=== PATIENT | female | born 1955 | race Caucasian/White ===

== ENCOUNTER → 2016-10-13 | Outpatient (CLI) | payer OTHER ==
--- NOTE | 2016-10-13 16:58 | DI ---
XR CXR 2VW PA/LAT,10/13/2016 10:32 AM: Clinical History: Dyspnea Previous Exam: October 12, 2010 Findings: PA and lateral views of the chest are obtained, and demonstrate flattening of the hemidiaphragms. The re is also some airspace disease predominantly within the left lung base. The cardiac silhouette is unremarkable. Multiple suture anchors is seen involving the anterior margin of the glenoid. Impression: Airspace disease within the left lung base, cannot rule out the possibility of an early pneumonia. Th is could also represent subsegmental atelectasis.
== END ==
LOC: MOB RAD 10:35
PROVIDERS: ATTEND Physician Assistant Medical
DX: R06.00 Dyspnea, unspecified (principal); J18.1 Lobar pneumonia, unspecified organism
CPT/HCPCS: 71020

== ENCOUNTER 2017-10-11 08:00 | Inpatient (IN) ==
[2017-10-25] MEDS ORDERED: Tranexamic Acid 1,000 MG in Sodium Chloride 0.9% 100 ML IV SCH (06:00)
[2017-10-25] MEDS ORDERED: ceFAZolin Inj 2gm (Premix) 2 GM/50 ML BAG IV ONE ×2 (06:00→06:09)
[2017-10-25] MEDS ORDERED: Ketorolac Inj 30 MG, Morphine Inj 5 MG, BUPivacaine Inj 0.25% PF 150 MG SPLASH ONE ×3 (06:00)
[2017-10-25] MEDS ORDERED: LIDOCAINE W/ SODIUM BICARB 0.5 ML SYR SUBD ONE (06:00)
[2017-10-25] MEDS ORDERED: LIDOCAINE W/ SODIUM BICARB 0.5 ML SYR ONE (06:08)
[2017-10-25] MEDS ORDERED: Lactated Ringers 1,000 ML PRIMARY IV ONE ×2 (06:08→12:07)
[2017-10-25] MEDS ORDERED: TRANEXAMIC ACID 1,000 MG / 10 ML VIAL ONE (06:09)
[2017-10-25] MEDS ORDERED: Sodium Chloride 0.9% 0 ML ONE (08:11)
[2017-10-25] MEDS ORDERED: Sodium Chloride 0.9% 500 ML ONE (08:11)
[2017-10-25] MEDS: Lactated Ringers 1,000 ML PRIMARY IV SCH (08:30)
[2017-10-25] MEDS ORDERED: LIDOCAINE 2%/ EPI 1:200,000 - 20 ML VIAL ONE (08:41)
[2017-10-25] MEDS ORDERED: fentaNYL Inj 250 MCG/5 ML VIAL ONE (08:41)
[2017-10-25] MEDS ORDERED: MIDAZOLAM 5 MG/1 ML ONE (08:41)
[2017-10-25] MEDS ORDERED: BUPIVACAINE 0.5% W/EPI MPF -30 ML VIAL IV ONE (08:41)
[2017-10-25] MEDS ORDERED: PROPOFOL 10 MG/1 ML (200 MG/20 ML) VIAL IV ONE ×2 (09:26→09:50)
[2017-10-25] MEDS ORDERED: ePHEDrine Inj 50 MG/ML AMP ONE (10:01)
[2017-10-25] MEDS ORDERED: ROCURONIUM 10 MG/1 ML - 5 ML VIAL IVP ONE (10:10)
[2017-10-25] MEDS ORDERED: KETAMINE 100 MG/1 ML - 5 ML ONE (10:19)
[2017-10-25] MEDS ORDERED: LIDOCAINE HCL 2 % 10 ML JELLY URO-JECT TOPICAL PRN (10:20)
[2017-10-25] MEDS ORDERED: HYDROmorphone 2 MG/1 ML ONE (10:27)
[2017-10-25] MEDS ORDERED: ONDANSETRON 4 MG/2 ML VIAL ONE ×2 (12:03→14:00)
[2017-10-25] MEDS ORDERED: HYDROmorphone 2 MG/1 ML IVP PRN (12:27)
[2017-10-25] MEDS ORDERED: NORMAL SALINE 10 ML SYRINGE FLUSH IVP PRN (12:27)
[2017-10-25] MEDS ORDERED: LIDOCAINE W/ SODIUM BICARB 0.5 ML SYR SUBD PRN (12:27)
[2017-10-25] MEDS ORDERED: fentaNYL Inj 100 MCG/2 ML VIAL IVP PRN (12:27)
[2017-10-25] MEDS ORDERED: PROMETHAZINE 25 MG/1 ML VIAL IM PRN (12:27)
--- NOTE | 2017-10-25 12:27 | CRNA.PROCE ---
Nerve Block Documentation - - Safety Measures: Time Out Taken, Site Verified - - Type of Nerve Block Used: Left Adductor Canal Nerve Block Position for Nerve Block: Supine Moniters Used During Block: SPO2, NIBP Oxygen Supplemented: Yes Sedation Used - Enter Amount in Comment Field [ANES.SEDAT]: Midazolam (mg): Yes (4mg), Fentanyl (mcg): Yes (50mcg) Skin Prep Used: ChloroPrep Technique: Ultrasound Nerve Block Needle Used: EchoBright 100 mm Local Anesthetic - Enter Amt in Comment Field [ANES.LOCNB]: 0.5 % Bupivicaine with Epinephrine 1:200,000 (mL): Yes (15ml), 2 % Xylocaine with Epinephrine 1: 200,000 (mL): Yes (15ml) - - PreOp Block : Time In: 09:10 PreOp Block : Time Out: 09:25 Anesthesia Time - Other Weight: 81.647 kg Height: 5 ft 3 in Body Mass Index (BMI): 31.8
[2017-10-25] MEDS ORDERED: Lactated Ringers 1,000 ML PRIMARY IV SCH (12:30)
--- NOTE | 2017-10-25 13:43 | ORTHO.OP ---
Surgery Date: 10/25/17 Preoperative Diagnosis: Osteoarthritis left knee Postoperative Diagnosis: Same Procedure: Left total knee arthroplasty using the Joe persona knee system with ultra congruent tray Surgeon: Yaakov Hanson MD Stamping Press Operator: Chriss Alvarenga MD Anesthesia Provider: Jason Davey CRNA Anesthesia Type: General, Regional Estimated Blood Loss (mL): 100 Fluids: 1300 mL of LR Complications: None Operative Summary: Extubated and taken to recovery room in stable condition
[2017-10-25] MEDS ORDERED: ONDANSETRON 4 MG/2 ML VIAL IVP ONE (14:00)
[2017-10-25] MEDS ORDERED: NALOXONE 0.4 MG/1 ML VIAL ONE (14:02)
[2017-10-25] MEDS: NALOXONE 0.4 MG/1 ML VIAL IVP ONE ×5 (14:03→15:32)
[2017-10-25] MEDS ORDERED: PROMETHAZINE 25 MG/1 ML VIAL IM ONE (14:49)
[2017-10-25] MEDS ORDERED: oxyCODONE/APAP 7.5/325 Tab 1 TAB TAB PO PRN (16:09)
[2017-10-25] MEDS ORDERED: ceFAZolin Inj 2gm (Premix) 2 GM/50 ML BAG IV SCH (16:09)
--- NOTE | 2017-10-25 16:32 | PT PM DAY ---
PM - Physical Therapy O: The patient was issued an [facility] Cold Therapy Unit and instructed in its propre use and care. P: No further therapy is indicated at this time. MTDD
[2017-10-25] MEDS: D5-1/2NS + 20mEq KCL 1,000 ML PRIMARY IV SCH (16:57)
--- NOTE | 2017-10-25 19:38 | PDOC ---
HPI - History of Present Illness Date of Service: 10/25/17 Time of Service: 16:30 Chief Complaint: Left knee pain History of Present Illness: This very pleasant 61-year-old female who has autoimmune hepatitis and is on chronic immunosuppressive therapy including CellCept, amongst other problems, who comes in today for a left knee replacement. Please see Dr. Hanson's note regarding that procedure. Postoperatively, patient is still a little groggy from her anesthesia, but she denies any chest pain, shortness breath, nausea or vomiting. She states her left knee pain is controlled. She tried to control her left knee pain for some time, but with her autoimmune hepatitis and need for immunosuppressive agents, she was not able to take Tylenol. She tried Synvisc which did not really help. She tries to avoid pain medications. She stated her arthritis was "[id number]" and that it was time to proceed with the surgery. She's not had any cardiovascular symptoms, no history of stroke, headaches, seizures, or abdominal issues. No history of kidney failure and no history of urinary tract infection. There were no exacerbating factors other than the knee pain was just getting worse. We were asked to follow the patient' s course and assume the attending role for the autoimmune hepatitis and other medical issues. Past Medical History Medical History: 1. Autoimmune hepatitis. 2. Left knee osteoarthritis. 3. Hypothyroidism. 4. Hypertension Surgical History: Hx of cholecystectomy, H/O: hysterectomy, H/O endoscopy, Hx of shoulder surgery Pertinent Family History: No history of heart disease in the family per the patient's discussion Past Social History: Does not smoke or drink alcohol. . Has children. Tobacco Use: Never Smoker In the Past 12 Months, Have Used or Abuse Any of the Following Substance: None Alcohol Use: None Medication / Allergies Home Medications: Home Medications 3 Medication Instructions Recorded Confirmed Type Calcium Carbonate/Vitamin D3 1 ea PO QD tab 01/07/14 10/25/17 History [Calcium 250+D Tablet] Ergocalciferol (Vitamin D2) 1 tab PO DAILY tab 01/07/14 10/25/17 History [Vitamin D2] Levothyroxine Sodium 50 mcg PO DAILY tab 01/07/14 10/25/17 History Multivitamin [Daily Vitamin] 1 tab ORAL QD tab 01/07/14 10/25/17 History Vitamin B Complex 1 ea PO QD tab 01/07/14 10/25/17 History Albuterol Sulfate [Proair Hfa] 2 puff INH QID #1 inh 10/13/16 10/19/17 Rx mycophenolate mofetil 500 mg tablet 500 mg PO BID tab 10/18/17 10/25/17 History Losartan Potassium [Cozaar] 200 mg PO QDAY 10/24/17 10/25/17 History Allergies/Adverse Reactions: Allergies 3 Allergy/AdvReac Type Severity Reaction Status Date / Time codeine Allergy Severe Severe Verified 10/25/17 18:28 Nausea meperidine HCl [From Demerol] Allergy Severe Severe Verified 10/25/17 18:28 nausea Review of Systems - Respiratory Respiratory: REPORTS: Negative System Review - Cardiovascular Cardiovascular: REPORTS: Negative System Review - Gastrointestinal Gastrointestinal / Abdominal: REPORTS: Negative System Review - Genitourinary Genitourinary: REPORTS: Negative System Review - Musculoskeletal Musculoskeletal: REPORTS: Joint Pain - Knees, See HPI - Neurological Neurologic: REPORTS: Negative System Review Exam - Vitals Vital Signs: Vital Signs Vital Signs - Last Taken Temperature 97.6 F 10/25/17 17:45 Pulse Rate 78 10/25/17 17:45 Respiratory Rate 14 10/25/17 17:45 Blood Pressure 127/70 10/25/17 17:45 Pulse Ox 96 10/25/17 17:45 Height 5 ft 3 in Weight 180 lb - General General Appearance: No Acute Distress, Cooperative - Head Head Exam: Normal Inspection, Normocephalic, Atraumatic - Eye Eye Exam: POSITIVE: No Scleral Icterus - ENT ENT Exam: POSITIVE: Mucous Membranes Moist - Neck Neck Exam: Normal Inspection, No Tenderness, No Lymphadenopathy, No Thyromegaly - Respiratory Respiratory Exam: POSITIVE: Clear to Auscultation - Bilaterally, Breathing Non Labored, Normal to Percussion and Palpation - Cardiovascular Cardiovascular Exam: POSITIVE: RRR, No Murmur, No Clicks, No Gallops, No Rubs, No JVD - GI/Abdominal GI/Abdominal Exam: POSITIVE: Normal Bowel Sounds, Non Tender, Non Distended, Soft - Rectal Rectal Exam: POSITIVE: Deferred - External Exam: POSITIVE: Deferred Exam: POSITIVE: Lechuga Catheter in Place (Urine is clear.) - Extremities Extremities Exam: POSITIVE: No Clubbing Present, No Edema Present, No Cyanosis Present Additional Extremities Exam Details: The left lower extremity is bandaged, wrapped with Lobo wraps, and in CPM currently. - Neurological Neurological Exam: POSITIVE: Alert, Oriented x 3, No Facial Droop, Speech Intact / Clear Results - Labs Additional Lab Results: 10/12/10 10/05/17 10/05/17 09:55 08:45 08:45 WBC Hgb RDW 12.7 Plt Count PT 11.0 INR 1.04 Sodium 142 Potassium 4.1 Chloride 108 Carbon Dioxide 20 L Anion Gap 14 BUN 13 Creatinine 0.9 Glucose 102 Calculated Osmolality 293.0 H Calcium 9.5 Total Bilirubin 0.6 AST 23 ALT 40 Alkaline Phosphatase 76 Total Protein 7.4 Albumin 4.3 Globulin 3.1 Urine Bacteria Ur Culture Indicated? 10/14/17 10/24/17 12:19 09:44 WBC 3.34 L Hgb 13.1 RDW Plt Count 191 PT INR Sodium Potassium Chloride Carbon Dioxide Anion Gap BUN Creatinine Glucose Calculated Osmolality Calcium Total Bilirubin AST ALT Alkaline Phosphatase Total Protein Albumin Globulin Urine Bacteria None Ur Culture Indicated? Culture not set - EKG Data -: EKG Interpreted by Me Rate: Normal EKG Shows Normal: Sinus Rhythm (This is from 10/05/2017) Assessment and Plan - Patient Problems (1) Hepatitis, autoimmune Current Visit: No Status: Acute Code(s): K75.4 - Autoimmune hepatitis (2) Hypertension Current Visit: Yes Status: Chronic Code(s): I10 - Essential (primary) hypertension Qualifiers: Hypertension type: essential hypertension Qualified Code(s): I10 - Essential (primary) hypertension (3) Hypothyroidism Current Visit: Yes Status: Chronic Qualifiers: Hypothyroidism type: acquired Qualified Code(s): E03.9 - Hypothyroidism, unspecified (4) Osteoarthritis of knees, bilateral Current Visit: Yes Status: Acute Code(s): M17.0 - Bilateral primary osteoarthritis of knee Qualifiers: Osteoarthritis type: primary Qualified Code(s): M17.0 - Bilateral primary osteoarthritis of knee (5) Status post left knee replacement Current Visit: Yes Status: Acute Code(s): Z96.652 - Presence of left artificial knee joint - Assessment / Plan Additional Assessment/Plan Details: Postoperatively, we will provide PT and OT for the patient. I'm not opposed to continuing antibiotics longer given the patient's autoimmune hepatitis, but prefer short course of possible. The patient is continue her home CellCept. We may need to contact the liver team to see if they want any CellCept levels while she is in the healing process from this knee surgery. No substitutes on her CellCept with any other brand. Pain management as per orthopedics. DVT prophylaxis for 10-14 days. Labs in a.m.
[2017-10-25] MEDS: ONDANSETRON 4 MG/2 ML VIAL IVP PRN (19:50)
[2017-10-25] MEDS: MORPHINE SULFATE 2 MG/1 ML IVP PRN (20:09)
[2017-10-25] MEDS ORDERED: Prochlorperazine Edisylate Inj 10mg/2ml vial IVP PRN (20:52)
[2017-10-25] MEDS: DOCUSATE 100 MG CAPSULE PO SCH (22:00)
[2017-10-25] MEDS: MYCOPHENOLATE MOFETIL 500 MG PO SCH (22:01)
[2017-10-26] MEDS: ceFAZolin Inj 2gm (Premix) 2 GM/50 ML BAG IV SCH ×2 (02:15→11:00)
[2017-10-26] MEDS: D5-1/2NS + 20mEq KCL 1,000 ML PRIMARY IV SCH (03:45)
[2017-10-26] MEDS: LEVOTHYROXINE 50 MCG TABLET PO SCH (05:12)
[2017-10-26 05:47] LABS: Hemoglobin [HGB] 11.4 g/dL (12.0-16.0); MEAN CORPUSCULAR HEMOGLOBIN 30.2 PG (27-31); MEAN CORPUSCULAR HGB CONC 32.6 g/dL (33-37); MEAN CORPUSCULAR VOLUME 92.6 FL (81-99); MEAN PLATELET VOLUME 9.6 FL (7.4-12.2); RED BLOOD COUNT 3.78 10^6/uL (4.20-5.40)
[2017-10-26 05:59] LABS: BLOOD UREA NITROGEN 14 mg/dL (7-22); BUN/CREATININE RATIO 15.55 (6-20)
[2017-10-26] MEDS: Lactated Ringers 1,000 ML PRIMARY IV SCH (06:39)
--- NOTE | 2017-10-26 08:13 | ORTHO.PROG ---
Last Taken Vital Signs: Vital Signs - Last Taken Temperature 98.6 F 10/26/17 07:18 Pulse Rate 67 10/26/17 07:18 Respiratory Rate 16 10/26/17 07:18 Blood Pressure 114/65 10/26/17 07:18 Pulse Ox 99 10/26/17 07:18 Subjective: Patient is sitting up in bed. Just finished breakfast. Reporting much less nausea. Pain seems to be well managed. Only took 1 pain pill early this morning and 2 mg morphine last night. Encouraged her to be more diligent taking pain medication. She asked me about Tylenol. She tries to stay away from that. Therefore will probably stop her Percocet and switch her to dilaudid. Objective: Vital signs are stable patient is afebrile. Left knee drain was removed. It was a little bit difficult to remove but it removed in its entirety. Leg is straight with good extension. Hemoglobin and hematocrit 11 and 35. Assessment: Impression: Doing well one day following total knee left. Plan: Plan: Is to begin physical therapy. Routine TKA protocol. Advance range of motion. Start her on Xarelto for DVT prophylaxis. Her antibiotic coverage will be extended probably 5-7 days because of her leukopenia and history of autoimmune hepatitis. She has chronically low white blood cell count. This was agreed upon by her ribbon winder. Have also spoken with our infectious disease nurse to let her know why we will be extending her antibiotic coverage.
[2017-10-26] MEDS: HYDROmorphone 2 MG TABLET PO PRN ×4 (08:22→22:06)
[2017-10-26] MEDS: Rivaroxaban Tab 10 MG TAB PO SCH (08:22)
[2017-10-26] MEDS: Calcium/Vit D 600mg/400u Tab 1 TAB TABLET PO SCH (08:22)
[2017-10-26] MEDS: DOCUSATE 100 MG CAPSULE PO SCH ×2 (08:22→20:31)
[2017-10-26] MEDS: Multivitamin Tab 1 TAB PO SCH (08:23)
[2017-10-26] MEDS ORDERED: ERGOCALCIFEROL PO SCH (09:00)
[2017-10-26] MEDS ORDERED: LOSARTAN 50 MG TABLET PO SCH (09:00)
[2017-10-26] MEDS ORDERED: VITAMIN B COMPLEX PO SCH (09:00)
--- NOTE | 2017-10-26 09:40 | DI ---
XR KNEE 1 OR 2 VWS,10/25/2017 1:35 PM: Clinical History: Postoperative total left knee arthroplasty. Previous Exam: September 08, 2017 Findings: AP and lateral views of the left knee are obtained, and demonstrate postsurgical changes consistent w ith a left total knee arthroplasty. There is no evidence of fracture. There is a drain noted. There is no fracture. Impression: Status post left total knee arthroplasty without fractures.
[2017-10-26] MEDS ORDERED: ALBUTEROL SULFATE 8.5 GM HFA INHALER INH PRN (09:42)
[2017-10-26] MEDS: ALBUTEROL SULFATE 8.5 GM HFA INHALER INH SCH ×2 (09:42→09:43)
[2017-10-26] MEDS: MYCOPHENOLATE MOFETIL 500 MG PO SCH ×4 (09:48→20:31)
--- NOTE | 2017-10-26 14:52 | PTI REPORT ---
Thank you for the referral of Maria G Yung. She was seen on 10/26/17 for an inpatient evaluation status post left total knee arthroplasty. SUBJECTIVE: The patient is a 61-year-old female status post left total knee replacement. The patient is retired and lives with her in a single story house with three to four steps to enter the house. The patient reports that she previously was not using an assistive device. The patient does have a standard walker in the room and reports that she borrowed it from the [facility]. The patient's works at night and will be home during the day to assist the patient as needed. States she had the CPM set from 10-75 degrees on most the night and that it helped with her knee pain. PAST MEDICAL HISTORY: Past medical history can be found in the patient's medical record. OBJECTIVE FINDINGS: General observations: The patient was supine in bed upon the therapist's arrival. The left knee was wrapped with compression bandaging and a catheter and IV were in place. Pain: The patient reports a pain level of 3/10 on the verbal analog scale (0=no pain, 10=worst pain). She did report receiving pain medication this morning. Bed mobility: The patient performed bed mobility with minimal assistance x1. The patient did report dizziness when she sat up and that subsided within two minutes. The patient was able to sit independently at edge of bed. Transfers: The patient performed sit to stand transfers with minimal assistance using a front wheeled walker. She did need cues for correct sequencing and hand placement. Ambulation: The patient ambulated 5 feet in her room from the bed to the chair with contact guard assist. She was able to place weight through the left lower extremity. The patient is currently weight-bearing as tolerated on the affected leg. ASSESSMENT: The patient is status left total knee replacement. The patient is currently weight-bearing as tolerated on the left lower extremity. Problem List: Decreased lower extremity strength Decreased lower extremity range of motion Decreased independence with functional mobility including bed mobility, transfers, and ambulation Pain Swelling Short-Term Goals: To be met by discharge from inpatient: Patient will be able to perform bed mobility independently in order to return to prior level of function. Patient will be able to perform sit to stand transfers mod independently using a front wheeled walker in order to safely return to prior level of function. Patient will be able to ambulate 50 feet with front wheeled walker in order to safely return to prior level of function. Patient will increase lower extremity strength by being able to perform bed mobility and transfers. Patient will report a pain level less than or equal to 1/10 during functional mobility in order to participate in preferred activities. Long-Term Goals: To be met following discharge from inpatient: Patient will be seen by outpatient physical therapy. TREATMENT PLAN: Patient will be seen B.I.D during the week and one time per day over the weekend as an inpatient for strengthening and range of motion exercises, bed mobility, transfers, gait training with a rolling walker, and safety education in order to increase functional independence and decrease fall risk. INITIAL TREATMENT: Treatment today consisted of the initial evaluation followed by transfer training and gait training with front wheeled walker. Demonstration and cues were needed for appropriate sequencing. Education was also provided to the patient on the progression of treatment while in the hospital, lying with knee extended to prevent flexion contractures, and use of walker for ambulation. The patient was left in bedside chair with call button within reach. Family was present in the room. Dictated by: KINSEY Garnica Supervised by: LIZANDRO Dejesus
[2017-10-26] MEDS: MORPHINE SULFATE 2 MG/1 ML IVP PRN (14:53)
[2017-10-26] MEDS: NORMAL SALINE 10 ML SYRINGE FLUSH IVP PRN (14:53)
--- NOTE | 2017-10-26 15:53 | PDOC(PROG) ---
Date and Time of Service: 10/26/2017, 1545 Interval History: No chest pain, no shortness breath, no nausea or vomiting. Knee is actually well controlled in terms of pain. She was nervous about Tylenol so her meds were switched to Dilaudid which I would agree with. Objective : Data - Labs CBC and BMP: 10/26/17 04:49 10/26/17 04:49 Objective : Exam - General General Appearance: No Acute Distress, Cooperative Additional General Exam Details: Vital Signs - Last Taken Temperature 98.2 F 10/26/17 11:32 Pulse Rate 78 10/26/17 11:32 Respiratory Rate 18 10/26/17 11:32 Blood Pressure 129/71 10/26/17 11:32 Pulse Ox 98 10/26/17 11:32 - Eye Eye Exam: No Scleral Icterus - ENT ENT Exam: Mucous Membranes Moist - Respiratory Respiratory Exam: Clear to Auscultation - Bilaterally, Breathing Non Labored - Cardiovascular Cardiovascular Exam: RRR, No Murmur, No Clicks, No Gallops, No Rubs, No JVD - GI/Abdominal GI/Abdominal Exam: Non Tender, Non Distended, Soft - Extremities Extremities Exam: No Clubbing Present, No Edema Present, No Cyanosis Present Additional Extremities Exam Details: Left knee is dressed, dressing is clean, dry, intact. - Neurological Neurological Exam: Alert, Oriented x 3, No Facial Droop, Speech Intact / Clear Assessment and Plan - Patient Problems (1) Hepatitis, autoimmune Current Visit: No Status: Acute Code(s): K75.4 - Autoimmune hepatitis (2) Hypertension Current Visit: Yes Status: Chronic Code(s): I10 - Essential (primary) hypertension Qualifiers: Hypertension type: essential hypertension Qualified Code(s): I10 - Essential (primary) hypertension (3) Hypothyroidism Current Visit: Yes Status: Chronic Qualifiers: Hypothyroidism type: acquired Qualified Code(s): E03.9 - Hypothyroidism, unspecified (4) Osteoarthritis of knees, bilateral Current Visit: Yes Status: Acute Code(s): M17.0 - Bilateral primary osteoarthritis of knee Qualifiers: Osteoarthritis type: primary Qualified Code(s): M17.0 - Bilateral primary osteoarthritis of knee (5) Status post left knee replacement Current Visit: Yes Status: Acute Code(s): Z96.652 - Presence of left artificial knee joint - Assessment / Plan Additional Assessment/Plan Details: I would agree that Tylenol can be held off on in terms of avoidance of either Percocet or combination hydrocodone and acetaminophen products. Continue PT and OT. Xarelto for DVT prophylaxis, although this is liver metabolized, I think she will tolerate it fine even with her autoimmune hepatitis. She does not have a child's Guzman class B or class C liver. 13 more days and then discontinue. Labs as per Dr. Hanson, no transfusion necessary today. Continue pain medication management, Dilaudid by mouth. No change in antihypertensive therapy today.
--- NOTE | 2017-10-26 16:16 | PT.PROG ---
Progress Note Progress Note: S. Patient stated that she is feeling alright this afternoon, she reports that she is having some soreness around the joint. O. Patient performed sit to stand transfer x 3 then ambulated 25 feet to the urbina and back to her bed where she transferred back to bed and was left with call light, alarm and CPM. A. Patient tolerated ambulation well, she was able to ambulate with no pain or problems. She was unable to tolerate CPM for more than 45 minutes. Patient would continue to benefit from skilled therapy to increase mobility and strength. P. Continue POC.
[2017-10-26] MEDS ORDERED: CELECOXIB 200 MG CAPSULE PO ONE (17:53)
[2017-10-26] MEDS: CEPHALEXIN 500 MG CAPSULE PO SCH (20:31)
[2017-10-27] MEDS: HYDROmorphone 2 MG TABLET PO PRN ×2 (03:06→19:19)
[2017-10-27] MEDS: LEVOTHYROXINE 50 MCG TABLET PO SCH (05:00)
[2017-10-27 05:36] LABS: Hematocrit [HCT] 33.7 % (37.0-47.0); Hemoglobin [HGB] 10.8 g/dL (12.0-16.0); MEAN CORPUSCULAR HEMOGLOBIN 29.8 PG (27-31); MEAN CORPUSCULAR VOLUME 93.1 FL (81-99); MEAN PLATELET VOLUME 9.7 FL (7.4-12.2); RED BLOOD COUNT 3.62 10^6/uL (4.20-5.40)
[2017-10-27 05:51] LABS: BLOOD UREA NITROGEN 18 mg/dL (7-22)
[2017-10-27] MEDS: ONDANSETRON 4 MG/2 ML VIAL IVP PRN (08:02)
[2017-10-27] MEDS: NORMAL SALINE 10 ML SYRINGE FLUSH IVP PRN (08:02)
--- NOTE | 2017-10-27 08:06 | ORTHO.PROG ---
Last Taken Vital Signs: Vital Signs - Last Taken Temperature 98 F 10/27/17 06:39 Pulse Rate 78 10/27/17 06:39 Respiratory Rate 17 10/27/17 06:39 Blood Pressure 111/52 10/27/17 06:39 Pulse Ox 95 10/27/17 06:39 Subjective: Patient sitting up in chair. She had a bout of emesis. Has been given antinausea medicine. Pain seems to be well managed. She is taking Dilaudid for pain. Had hardly any morphine yesterday. Objective: Vital signs stable patient is afebrile. Left knee dressing was changed. Incision is clean and dry. Hardly any swelling. I flexed her to about 90. Hemoglobin and hematocrit 10.8 and 33. Assessment: Impression: Doing well postop day 2 from total knee Plan: Plan: Continue physical therapy. Working on range of motion. We'll try to decide on her disposition the next day or 2.
[2017-10-27] MEDS: DOCUSATE 100 MG CAPSULE PO SCH (08:46)
[2017-10-27] MEDS: Rivaroxaban Tab 10 MG TAB PO SCH (08:46)
[2017-10-27] MEDS: Multivitamin Tab 1 TAB PO SCH (08:46)
[2017-10-27] MEDS: Calcium/Vit D 600mg/400u Tab 1 TAB TABLET PO SCH (08:47)
[2017-10-27] MEDS: CEPHALEXIN 500 MG CAPSULE PO SCH ×2 (08:47→16:24)
[2017-10-27] MEDS: CELECOXIB 200 MG CAPSULE PO PRN ×2 (08:51→19:19)
[2017-10-27] MEDS: MYCOPHENOLATE MOFETIL 500 MG PO SCH (09:28)
[2017-10-27 09:33] LABS: SERUM ALBUMIN 3.6 g/dL (3.5-4.8)
--- NOTE | 2017-10-27 10:02 | PT.PROG ---
Progress Note Progress Note: S: Pt reports she has had a lot of nausea this morning, is willing to participate in PT but does not wish to leave room. O: Treatment session consisted of: quad sets/heel slides 10x each, pillow squeezes x10, ankle pumps x20, sit to stands x10 to four point walker. PROM of L knee today was 3-94*. A: With multiple self-selected rest breaks pt was able to complete activities in room despite initial complaints of nausea. Therex were completed to fatigue. P: Continue per POC
--- NOTE | 2017-10-27 10:06 | OT.PROG ---
Progress Note Progress Note: Occupational Therapy: 15 min S: pt stated she was nauseous and dizzy this morning but her pain level was low. O: pt completed ADL task of dressing. pt I in LE dressing and UE dressing. pt needed MIN A for standing with use of walker. pt complained of nausea and session was ended. A: pt tolerated session well minus becoming nauseated with standing. pt is motivated to completed therapy. P; continue POC
--- NOTE | 2017-10-27 10:42 | OTI REPORT ---
Thank you for the referral of Maria G Yung. She was seen on 10/26/17 for an occupational therapy inpatient evaluation status post left total knee arthroplasty. SUBJECTIVE: The patient is a 61-year-old female. The patient reports that she lives in [place], [place]. She lives with her in a single story home with four steps to the entrance and two handrails; however, they are too wide to use, so she does only use one handrail. The patient does report that her is able to provide assistance as needed. Their bathroom set up includes a tub/ shower combo and they have already borrowed a tub transfer bench from the [facility]. The patient has a raised toilet seat with handles that she has been using for a long time. Prior to surgery, the patient reports that she was mostly independent in her ADLs. She did not use any adaptive equipment for mobility within the home. She did have bilateral knee pain and that caused some difficulty with things such as getting off of a standard toilet. The patient's goals are to return home and to decrease her pain in that left knee. PAST MEDICAL HISTORY: Past medical history can be found in the patient's medical record. OBJECTIVE FINDINGS: General observations: The patient was supine in bed upon the therapist's arrival. She reports she wants to transfer to sitting edge of bed because she is having some pain in her hip and low back. Pain: The patient reports a pain level of 6/10 on the verbal analog scale (0=no pain, 10=worst pain) in the left lower extremity. Sensation: The patient does report that she has all of her feeling back. Bed mobility: The patient demonstrated the ability to move from supine to sitting edge of bed with minimal assistance to move the left lower extremity. The patient did tolerate sitting edge of bed well with no reports of lightheadedness. Range of motion: The patient demonstrates upper extremity range of motion bilaterally that is within functional limits. Strength: The patient demonstrates upper extremity strength bilaterally of 4+/5 for the shoulder, elbow, hand, and wrist. Transfers: The patient demonstrated the ability to transfer from sit to stand from edge of bed with minimal assistance with use of a two wheeled walker. Ambulation: The patient then ambulated a short distance to the bathroom with a slow gait, putting less weight through that left lower extremity due to an increase in pain. Activities of daily living: The patient completed toileting with stand by assistance for toilet transfer. The patient was independent with toilet hygiene and clothing management. ASSESSMENT: Problem List: Decreased bilateral upper extremity strength for functional mobility tasks Decreased ability to perform lower extremity dressing tasks Decreased ability to perform showering tasks Decreased activity tolerance related to standing and ADLs Short-Term Goals: To be met by discharge from inpatient: Patient will increase bilateral upper extremity strength by one manual muscle grade. Patient will demonstrate activity tolerance, being able to complete upper extremity strengthening activities x20 minutes before requiring a rest break and becoming fatigued. 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 Patient will be able to complete showering task with stand by assistance only for safety. Patient will tolerate standing x8 minutes at the sink to complete grooming tasks. Long-Term Goals: To be met following discharge from inpatient: Patient will return home with decreased pain and will be independent with all ADLs. TREATMENT PLAN: Patient will be seen B.I.D during the week and one time per day over the weekend as an inpatient to address the above goals and objectives. INITIAL TREATMENT: Treatment today consisted of the initial evaluation followed by toileting and functional ambulation. Following ambulation and toileting task the patient did report that her knee pain had lessened some. The patient then ambulated back to her chair. The patient was left in recliner with call light in place. LOGAN
--- NOTE | 2017-10-27 16:56 | OT.PROG ---
Progress Note Progress Note: Occupational Therapy: 30 min S: pt stated she was doing well and wanted to come down stairs. O: pt completed functional transfer from chair to w/c with FWW and CGA for safety. moist heat was applied to posterior knee x20 min. pt completed RTB exercises of chest pulls x20, biceps x20, triceps x20, shoulder flexion x20. pt completed 3# weighted dowel exercises of shoulder flexion x20, chest press x20. pt completed 4# BUE exercise of abduction x20. A: pt tolerated session well. P: continue POC
--- NOTE | 2017-10-27 17:20 | PT.PROG ---
Progress Note Progress Note: S: Pt reports that she is feeling a lot better this afternoon. Agreed to participate in PT. O: Tx consisted of instruction in the following exercises (10x each): heel slides, quad sets, SLR, SAQ, hip abd/add, sit to stands, LAQs, ankle pumps and step ups onto a 2 inch box. Seated passive motion for knee flexion and extension. Pt ambulated x 60 ft with FWW and CGA x 1 for safety. Pt was brought back up to her room and left in chair with alarm set and call light within reach. A: Pt is progressing well with therapy and able to ambulate further and perform step ups onto a shorter box. We will try stairs tomorrow in the AM and anticipate that pt will be d/c tomorrow afternoon as she is progressing well towards her goals. Able to achieve 3-90 deg of passive motion. P: Instruct in stairs in the AM. Continue per POC.
[2017-10-27] MEDS ORDERED: CALCIUM CARBONATE 500 MG (TUMS) CHEWABLE TABLET PO ONE (19:48)
[2017-10-27] MEDS ORDERED: IBUPROFEN 800 MG TABLET PO ONE ×2 (19:48→21:18)
[2017-10-27] MEDS ORDERED: SUMAtriptan Tab 25 MG TAB PO ONE ×2 (19:48→21:19)
[2017-10-27] MEDS ORDERED: CALCIUM CARBONATE 500 MG (TUMS) CHEWABLE TABLET PO PRN (21:20)
[2017-10-28] MEDS: DOCUSATE 100 MG CAPSULE PO SCH ×2 (00:04→08:18)
[2017-10-28] MEDS: CEPHALEXIN 500 MG CAPSULE PO SCH ×2 (00:04→08:18)
[2017-10-28] MEDS: MYCOPHENOLATE MOFETIL 500 MG PO SCH ×2 (00:04→08:18)
[2017-10-28] MEDS: HYDROmorphone 2 MG TABLET PO PRN ×2 (00:05→04:28)
[2017-10-28] MEDS: LEVOTHYROXINE 50 MCG TABLET PO SCH ×2 (04:25→04:53)
[2017-10-28] MEDS: Calcium/Vit D 600mg/400u Tab 1 TAB TABLET PO SCH (08:18)
[2017-10-28] MEDS: Multivitamin Tab 1 TAB PO SCH (08:18)
[2017-10-28] MEDS: Rivaroxaban Tab 10 MG TAB PO SCH (08:18)
[2017-10-28 10:39] VITALS: RESP 20; O2SAT 94
--- NOTE | 2017-10-28 12:01 | OT.PROG ---
Progress Note Progress Note: Occupational Therapy: 40 min S: pt stated she was doing fine and was excited to be going home. O; pt completed functional transfer from chair to w/c with FWW and CGA for safety. moist heat was applied to L posterior knee. pt completed RTB exercises of biceps curls x20, triceps x20, chest pulls x20, shoulder flexion x20, extension x20. tp completed 4# BUE exercises of shoulder flexion x20, chest press x20, biceps x20. A: pt was an active participant in therapy today. P: continue POC
--- NOTE | 2017-10-28 13:07 | ORTHO.PROG ---
Last Taken Vital Signs: Vital Signs - Last Taken Temperature 97.6 F 10/28/17 09:00 Pulse Rate 73 10/28/17 09:00 Respiratory Rate 20 10/28/17 09:00 Blood Pressure 121/52 10/28/17 09:00 Pulse Ox 94 10/28/17 09:00 Subjective: I saw the patient this morning. She was sitting in her chair. Doing well. Wants to try to go home today. Had some nausea but that was after taking Dilaudid on an empty stomach. Objective: Vital signs are stable patient is afebrile. Left knee incision is clean and dry. Minimal swelling. New dressing was applied. She is able to flex her knee to about 92 sitting in a chair. Full extension. Assessment: Impression: Doing excellent postop day 3 from left total knee. Plan: Plan: Is to discharge her after her physical therapy is completed today. I will see her back on November 19 at 10:15 AM.
[2017-10-28 14:35] VITALS: BP 135/50; TEMP 97.4
--- NOTE | 2017-10-31 11:50 | PT PM DAY ---
Diagnosis : Left TKA PM - Physical Therapy S: The patient states she is ready to go home. O: The patient ambulated x175 feet to the therapy gym where she received an application of moist heat pack x20 minutes including set up to the left knee. She then performed supine exercises in the form of heel slides, quad sets, short arc quads, ankle pumps, seated marches, long arc quads, and sit to stands , all x10. The patient demonstrated knee flexion of 94 degrees today. The patient then ambulated 175 feet back to her room and was left in chair with chair alarm set and call light within reach. A: The patient tolerated therapy well. The patient will benefit from outpatient physical therapy once discharged. P: Continue seeing patient BID during the week and one time per day over the weekend until discharge. MTDD
== END 2017-10-28 15:02 | disposition home or self-care (01) | DRG 470 ==
LOC: OPS 10-25 07:26 → MED/SURG 10-25 15:52
PROVIDERS: ADMIT Orthopaedic Surgery; ATTEND Orthopaedic Surgery